=== PATIENT | female | born 1970 | race Caucasian/White ===

== ENCOUNTER 2023-04-13 11:49 | Emergency (ER) | payer BC ==
[~2023-04-13] VITALS: Ht 175.3 cm; Wt 80.1 kg
[2023-04-13] MEDS ORDERED: CEPHALEXIN500 M1 PO (12:50)
[2023-04-13 13:08] VITALS: BP 117/72
== END 2023-04-13 13:08 | disposition home or self-care (01) ==
LOC: ED 11:49
DX: K61.1 Rectal abscess (principal)
CPT/HCPCS: 46040; 99283-25; A9270